=== PATIENT | male | born 1965 | race Caucasian/White ===

== ENCOUNTER 2024-06-17 16:45 | Emergency (ER) | payer BC ==
[2024-06-17] MEDS: Rivaroxaban 15 MG Tab PO STA (20:01)
== END 2024-06-17 20:00 | disposition home or self-care (01) ==
LOC: JD.ED 16:45
DX: I82.402 Acute embolism and thrombosis of unspecified deep veins of left lower extremity (principal); Z79.01 Long term (current) use of anticoagulants; Z88.2 Allergy status to sulfonamides
CPT/HCPCS: 93971; 99283; A9270